=== PATIENT | female | born 1960 | race Caucasian/White ===

== ENCOUNTER 2022-07-21 20:22 | Emergency (ER) | payer MEDICARE, BC, SELFPAY ==
[2022-07-21 20:27] VITALS: BP 160/85; RESP 20; TEMP 37.5; O2SAT 98
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
--- NOTE | 2022-07-21 20:50 | ED.NURSE ---
Visual Acquity : Right eye - 20/25 left eye - 20/30
== END 2022-07-21 21:13 | disposition home or self-care (01) ==
PROVIDERS: Emergency Provider Family Medicine; PCP Family Medicine
DX: H43.812 Vitreous degeneration, left eye (principal)
CPT/HCPCS: 99282